=== PATIENT | male | born 1950 ===

== ENCOUNTER 2016-06-11 15:51 | Inpatient (IN) | payer MEDICARE, OTHER ==
[2016-06-11 16:28] VITALS: BMI 28.6
[2016-06-11 17:25] LABS: BASO # 0.1 K/uL (0.0-0.2); BASO % 1.5 % (0.0-2.0); EOS # 0.5 K/uL (0.0-0.7); EOS % 8.4 % (0.0-4.0); HEMATOCRIT 30.4 % (35.0-51.0); LYMPH # 1.2 K/uL (1.0-4.3); LYMPH % 18.7 % (20.0-40.0); MEAN CELL VOLUME 69.3 fL (80.0-94.0); MEAN CORPUSCULAR HEMOGLOBIN 21.4 pg (27.0-31.0); MEAN CORPUSCULAR HGB CONC 30.9 g/dL (33.0-37.0); MEAN PLATELET VOLUME 8.4 fL (7.2-11.7); MONO # 0.7 K/uL (0.0-0.8); MONO % 11.6 % (0.0-10.0); RED CELL DISTRIBUTION WIDTH 28.2 % (11.5-14.5); WHITE BLOOD COUNT 6.2 K/uL (4.8-10.8)
[2016-06-11 17:33] LABS: CHLORIDE 98 mmol/L (98-107); INR 1.1; SODIUM 140 mmol/L (132-148)
[2016-06-11 17:34] LABS: POTASSIUM 3.5 mmol/L (3.6-5.2)
[2016-06-11 17:36] LABS: ALB/GLOB RATIO 1.4 (1.0-2.1); ALKALINE PHOSPHATASE 65 U/L (38-126); AST/SGOT 28 U/L (17-59); BILIRUBIN,TOTAL 0.3 mg/dL (0.2-1.3); BLOOD UREA NITROGEN 14 mg/dL (9-20); CARBON DIOXIDE 28 mmol/L (22-30); GFR AFRICAN-AMERICAN > 60; GLUCOSE,RANDOM 139 mg/dL (75-110); TOTAL PROTEIN 6.6 g/dL (6.3-8.3)
[2016-06-11 17:37] LABS: ALT/SGPT 15 U/L (21-72); CALCIUM 8.2 mg/dl (8.6-10.4)
--- NOTE | 2016-06-11 18:06 | C.PDOC ---
History Of Present Illness 66 year old male presents to the ED after being sent by Dr. Howell for endoscopy prep for a gi bleed. Patient states he had black stool and anemia with a hemoglobin of 5.4 and required a blood transfusion a week and a half ago. He was worked up and had upper and lower endoscopies however the source of bleeding was not found until he had a capsule endoscopy showing blood in the small intestine. His endoscopy will be tomorrow and he notes he has some SOB with exertion, mild lightheadedness, and some bloating. Denies abdominal pain, nausea, vomiting, chest pain, palpitations, or any other complaints at this time. Time Seen by Provider: 06/11/16 16:34 Chief Complaint (Nursing): GI Problem History Per: Patient History/Exam Limitations: no limitations Onset/Duration Of Symptoms: Days Current Symptoms Are (Timing): Still Present Associated Symptoms: Lightheadedness. denies: Vomiting Past Medical History Reviewed: Historical Data, Nursing Documentation, Vital Signs Vital Signs: Last Vital Signs Temp 98.3 F 06/11/16 16:28 Pulse 75 06/11/16 16:28 Resp 18 06/11/16 16:28 BP 141/78 06/11/16 16:28 Pulse Ox 97 06/11/16 18:10 - Medical History PMH: Anemia (with transfusion), Arthritis, Asthma, Back Problems (Lumbar Stenosis), CAD, COPD, Diabetes, Gastrointestinal Ulcer (pyloric ulcer), HTN, Hypercholesterolemia, Osteoporosis, Rheumatoid Arthritis Surgical History: Coronary Stent, Endoscopy - [facility] Procedures CORONAR ARTERIOGR-2 CATH (04/15/06) INJECT ANTICOAGULANT (04/15/06) INSERTION OF ONE VASCULAR STENT (04/15/06) INSPECTION OF UPPER INTESTINAL TRACT, ENDO (02/27/16) INSRT OF DRUG-ELUTING CORON ARTERY STENTS(S) (04/15/06) LEFT HEART CARDIAC CATH (04/15/06) LT HEART ANGIOCARDIOGRAM (04/15/06) MEASURE OF CARDIAC SAMPL & PRESSURE, L HEART, PERC APPROACH (01/15/16) PERC TRANSLUMINAL CORON ANGIOPLASTY PTCA OR CORON ATHERECT (04/15/06) PLAIN RADIOGRAPHY OF LEFT HEART USING OTHER CONTRAST (01/15/16) PLAIN RADIOGRAPHY OF MULT COR ART USING OTH CONTRAST (01/15/16) PROCEDURE ON SINGLE VESSEL (04/15/06) TRANSFUSE NONAUT RED BLOOD CELLS IN PERIPH VEIN, PERC (06/03/16) Family History: States: Unknown Family Hx - Social History Hx Tobacco Use: No Hx Alcohol Use: No Hx Substance Use: No - Immunization History Hx Tetanus Toxoid Vaccination: No Hx Influenza Vaccination: Yes Hx Pneumococcal Vaccination: No Review Of Systems Except As Marked, All Systems Reviewed And Found Negative. Constitutional: Negative for: Fever, Chills Cardiovascular: Positive for: Light Headedness. Negative for: Chest Pain, Palpitations Respiratory: Positive for: SOB with Excertion Gastrointestinal: Positive for: Other (+Bloating). Negative for: Nausea, Vomiting, Abdominal Pain Physical Exam - Physical Exam Appears: Non-toxic, No Acute Distress, Other (+Mild anemic) Skin: Warm, Dry Head: Atraumatic, Normacephalic Eye(s): bilateral: Normal Inspection Oral Mucosa: Moist Chest: Symmetrical, No Deformity Cardiovascular: Rhythm Regular, No Murmur Respiratory: Normal Breath Sounds, No Accessory Muscle Use, No Rales, No Rhonchi , No Wheezing Gastrointestinal/Abdominal: Bowel Sounds (+Normal bowel sounds), Soft, No Tenderness, Distention (+Slight distention), No Guarding, No Rebound Extremity: Normal ROM Neurological/Psych: Oriented x3, Normal Speech, Normal Cognition ED Course And Treatment - Laboratory Results Result Diagrams: 06/11/16 17:18 06/11/16 17:18 Lab Interpretation: Abnormal (Mild anemia Hgb 9.4, Hct 30.4) ECG: Interpreted By Me ECG Rhythm: Sinus Rhythm, 1st Degree HB ECG Interpretation: No Acute Changes O2 Sat by Pulse Oximetry: 97 (room air) Pulse Ox Interpretation: Normal Progress Note: EKG and Blood work ordered and reviewed. Reevaluation Time: 18:52 Reassessment Condition: Unchanged - Physician Consult Information Time Consulting Physician Contacted: 18:52 Physician Contacted: Joaquin Willoughby Outcome Of Conversation: Patient to be admitted for endoscopy tomorrow. Disposition - Disposition Disposition: HOSPITALIZED Disposition Time: 18:52 Condition: STABLE - POA Present On Arrival: None - Clinical Impression Clinical Impression: Gastrointestinal hemorrhage - Scribe Statement The provider has reviewed the documentation as recorded by the Scribe Canelo Mccormick. Provider Attestation: All medical record entries made by the Scribe were at my direction and personally dictated by me. I have reviewed the chart and agree that the record accurately reflects my personal performance of the history, physical exam, medical decision making, and the department course for this patient. I have also personally directed, reviewed, and agree with the discharge instructions and disposition.
--- NOTE | 2016-06-11 20:57 | CP.PCM.CON ---
History of Present Illness - History of Present Illness History of Present Illness: CC: GI Bleed HPI: Patient is a 66 year old man admitted with several month history of obscure GI bleeding, on Aspirin and Plavix for cardiac disease, admitted with blck stool, Hgb 9.4, and capsule endoscopy study today showing fresh blood in the region of the distal duodenum or proximal small bowel. he last tool his antiplatelet medications this morning. he has been seeing black stool the past several days. He was in [facility] last week with Hgb 5, and released with Hgb 9.[address] scan showed some gastric wall thickening of nonspecific nature. The patient last was admitted [facility]if[facility] in February 2016 with GI bleed of obscure origin, I recall the Hgb was around 6 on that admission. EGD to the level of the 3rd portion of the duodenum did not reveal a source of bleeding. Prior to that he initially presented with obscure bleeding in February 2015, at which time he had EGD and Colonoscopy done. He tends to have a pattern of rebleeding whenevr his dual anti-platelet therapy is resumed. He also gets exacerbations of COPD when he gets anemic. Review of Systems - Constitutional Constitutional: absent: Fever, Malaise, Weakness - EENT Eyes: absent: Change in Vision Nose/Mouth/Throat: absent: Nasal Congestion - Cardiovascular Cardiovascular: absent: Chest Pain, Dyspnea, Palpitations - Respiratory Respiratory: absent: Cough, Dyspnea - Gastrointestinal Gastrointestinal: absent: Abdominal Pain, Hematochezia - Genitourinary Genitourinary: absent: Change in Urinary Stream - Musculoskeletal Musculoskeletal: Arthralgias - Integumentary Integumentary: New Lesions - Neurological Neurological: absent: Loss of Vision - Psychiatric Psychiatric: absent: Anxiety, Depression - Hematologic/Lymphatic Hematologic: Easy Bleeding, Easy Bruising Past Patient History - Infectious Disease Hx of Infectious Diseases: None - Past Medical History & Family History Past Medical History?: Yes - Past Social History Smoking Status: Former Smoker Alcohol: None - CARDIAC Hx Hypercholesterolemia: Yes Hx Hypertension: Yes - PULMONARY Hx Asthma: Yes Hx Chronic Obstructive Pulmonary Disease (COPD): Yes - NEUROLOGICAL Hx Neurological Disorder: No Other/Comment: sciatica - HEENT Hx HEENT Problems: No (wears glasses) - RENAL Hx Chronic Kidney Disease: No - ENDOCRINE/METABOLIC Hx Endocrine Disorders: Yes Hx Diabetes Mellitus Type 2: Yes - HEMATOLOGICAL/ONCOLOGICAL Hx Anemia: Yes (with transfusion) - INTEGUMENTARY Hx Dermatological Problems: No - MUSCULOSKELETAL/RHEUMATOLOGICAL Hx Arthritis: Yes Hx Osteoporosis: Yes Hx Rheumatoid Arthritis: Yes - GENITOURINARY/GYNECOLOGICAL Hx Genitourinary Disorders: No - PSYCHIATRIC Hx Substance Use: No - SURGICAL HISTORY Hx Coronary Stent: Yes - ANESTHESIA Hx Anesthesia: Yes Hx Anesthesia Reactions: No Hx Malignant Hyperthermia: No Meds Allergies/Adverse Reactions: Allergies Allergy/AdvReac Type Severity Reaction Status Date / Time No Known Allergies Allergy Verified 06/11/16 16:46 Physical Exam - Constitutional Appears: Well, No Acute Distress - Eye Exam Eye Exam: absent: Conjunctival injection, Scleral icterus - ENT Exam ENT Exam: Normal Exam - Neck Exam Neck exam: Positive for: Normal Inspection - Respiratory Exam Respiratory Exam: Clear to Auscultation Bilateral - Cardiovascular Exam Cardiovascular Exam: REGULAR RHYTHM - GI/Abdominal Exam GI & Abdominal Exam: Soft. absent: Distended, Mass, Tenderness - Extremities Exam Additional comments: Small petechiae on both arms - Back Exam Back exam: NORMAL INSPECTION - Neurological Exam Neurological exam: Alert, Oriented x3 - Psychiatric Exam Psychiatric exam: Normal Affect, Normal Mood - Skin Skin Exam: Petechiae Results - Vital Signs Recent Vital Signs: Last Vital Signs Temp 98.3 F 06/11/16 16:28 Pulse 75 06/11/16 16:28 Resp 18 06/11/16 16:28 BP 141/78 06/11/16 16:28 Pulse Ox 97 06/11/16 18:53 - Labs Result Diagrams: 06/11/16 17:18 06/11/16 17:18 Assessment & Plan (1) Anemia Assessment and Plan: GI Blood losses, on dual anti-platelet drug therapy Hgb stable Status: Acute (2) Gastrointestinal hemorrhage Assessment and Plan: Slow GI blood losses- fresh blood seen in proximal Small Bowel on Capsule endoscopy Rec: Hold anti-platelet agents and plan for upper endoscopy with long scope in AM. Status: Acute (3) COPD (chronic obstructive pulmonary disease) Assessment and Plan: Management per PCP Seems comfortable Status: Acute (4) Coronary artery disease Status: Chronic - Date & Time Date: 06/11/16 Time: 19:30
[2016-06-11] MEDS ORDERED: Albuterol 0.083% Inhal Sol (2.5 mg/3 mL) UD IH PRN (22:25)
[2016-06-12] MEDS: Albuterol-Ipratrop 3 mg / 0.5 (3 ml) UD INH SCH ×7 (06:15→23:25)
[2016-06-12] MEDS ORDERED: Propofol 10 mg/ml Inj (20 ML) ONE ×2 (07:48→08:24)
--- NOTE | 2016-06-12 08:50 | CP.PCM.HP ---
History of Present Illness - History of Present Illness History of Present Illness: 66 y/o male with CAD, COPD, Rheumatoid Arthritis. Patient has GI bleed 2-3 mths ago and admitted in [facility]. Patient had re-bleed and seen in [facility]. Capsule endoscopy was done and noted still has bleeding. Pt was advise to go to ER. Present on Admission - Present on Admission Any Indicators Present on Admission: Yes History of DVT/PE: No History of Uncontrolled Diabetes: No Urinary Catheter: No Decubitus Ulcer Present: No Past Patient History - Infectious Disease Hx of Infectious Diseases: None - Past Medical History & Family History Past Medical History?: Yes - Past Social History Smoking Status: Former Smoker - CARDIAC Hx Hypercholesterolemia: Yes Hx Hypertension: Yes Other/Comment: cad - PULMONARY Hx Asthma: Yes Hx Chronic Obstructive Pulmonary Disease (COPD): Yes - NEUROLOGICAL Hx Neurological Disorder: No Other/Comment: sciatica - HEENT Hx HEENT Problems: No (wears glasses) - RENAL Hx Chronic Kidney Disease: No - ENDOCRINE/METABOLIC Hx Endocrine Disorders: Yes Hx Diabetes Mellitus Type 2: Yes - HEMATOLOGICAL/ONCOLOGICAL Hx Anemia: Yes (with transfusion) - INTEGUMENTARY Hx Dermatological Problems: No - MUSCULOSKELETAL/RHEUMATOLOGICAL Hx Falls: No - GENITOURINARY/GYNECOLOGICAL Hx Genitourinary Disorders: No - PSYCHIATRIC Hx Substance Use: No - SURGICAL HISTORY Hx Coronary Stent: Yes - ANESTHESIA Hx Anesthesia: Yes Hx Anesthesia Reactions: No Hx Malignant Hyperthermia: No Has any member of the family had a problem w/ anesthesia?: No Meds Allergies/Adverse Reactions: Allergies Allergy/AdvReac Type Severity Reaction Status Date / Time No Known Allergies Allergy Verified 06/11/16 16:46 Results - Vital Signs Recent Vital Signs: Last Vital Signs Temp 97.7 F 06/12/16 08:00 Pulse 77 06/12/16 08:01 Resp 12 06/12/16 08:01 BP 159/91 H 06/12/16 08:01 Pulse Ox 100 06/12/16 08:01 - Labs Result Diagrams: 06/11/16 17:18 06/11/16 17:18 Labs: Laboratory Results - last 24 hr 06/12/16 07:28 POC Glucose (mg/dL) 129 H
[2016-06-12] MEDS ORDERED: Home Med 1 UNIT (Linagliptin [Tradjenta] 5 MG) PO SCH (10:00)
[2016-06-12] MEDS: Ranolazine 500 mg Extended Release Tablets PO SCH ×2 (10:12→18:10)
--- NOTE | 2016-06-12 21:29 | CARD ---
APPROVED REPORT EKG Measurement Heart [id number] <Conclusion> Sinus rhythm with 1st degree AV block Otherwise normal ECG
[2016-06-13] MEDS: Albuterol-Ipratrop 3 mg / 0.5 (3 ml) UD INH SCH ×3 (03:15→11:38)
[2016-06-13 07:35] LABS: HEMATOCRIT 32.1 % (35.0-51.0); MEAN CELL VOLUME 69.5 fL (80.0-94.0); MEAN CORPUSCULAR HEMOGLOBIN 21.6 pg (27.0-31.0); MEAN PLATELET VOLUME 8.6 fL (7.2-11.7); RED CELL DISTRIBUTION WIDTH 27.6 % (11.5-14.5); WHITE BLOOD COUNT 8.8 K/uL (4.8-10.8)
--- NOTE | 2016-06-13 08:08 | CP.PCM.PN ---
Subjective - Date & Time of Evaluation Date of Evaluation: 06/13/16 Time of Evaluation: 07:50 - Subjective Subjective: Pt no complain; (+) min weakness but no CP, no SOB, no cough no n/v, no diarrhea, no abd pain; Want to go home Objective - Vital Signs/Intake and Output Vital Signs (last 24 hours): Temp Pulse Resp BP Pulse Ox 97.6 F 78 18 127/74 100 06/12/16 23:21 06/13/16 02:01 06/12/16 23:21 06/12/16 23:21 06/12/16 23:21 - Medications Medications: Current Medications Albuterol Sulfate (Albuterol 0.083% Inhal Celeste (2.5 Mg/3 Ml) Ud) 2.5 mg IH RQ4 PRN PRN Reason: Shortness of Breath Albuterol/Ipratropium (Duoneb 3 Mg/0.5 Mg (3 Ml) Ud) 3 ml INH RQ4 [facility] Last Admin: 06/13/16 07:29 Dose: 3 ml Amlodipine Besylate (Norvasc) 5 mg PO DAILY [facility] Last Admin: 06/12/16 10:12 Dose: 5 mg Losartan Potassium (Cozaar) 100 mg PO DAILY [facility] Last Admin: 06/12/16 10:11 Dose: 100 mg Metoprolol Tartrate (Lopressor) 25 mg PO BID [facility] Last Admin: 06/12/16 18:10 Dose: 25 mg Montelukast Sodium (Singulair) 10 mg PO HS [facility] Pantoprazole Sodium (Protonix Inj) 40 mg IVP DAILY [facility] Last Admin: 06/12/16 10:12 Dose: 40 mg Ranolazine (Ranexa) 500 mg PO BID [facility] Last Admin: 06/12/16 18:10 Dose: 500 mg Rosuvastatin Calcium (Crestor) 40 mg PO HS [facility] Sitagliptin Phosphate (Januvia) 50 mg PO DAILY [facility] Last Admin: 06/12/16 14:46 Dose: 50 mg Tamsulosin HCl (Flomax) 0.4 mg PO DAILY [facility] Last Admin: 06/12/16 10:11 Dose: 0.4 mg - Labs Labs: 06/13/16 07:29 PT 12.0 SECONDS (9.7-12.2) 06/11/16 17:18 INR 1.1 06/11/16 17:18 APTT 34 SECONDS (21-34) 06/11/16 17:18 - Constitutional Appears: No Acute Distress - Eye Exam Eye Exam: Normal appearance - ENT Exam ENT Exam: Mucous Membranes Moist - Neck Exam Neck Exam: Full ROM - Respiratory Exam Respiratory Exam: Clear to Ausculation Bilateral. absent: Rales, Rhonchi, Wheezes - Cardiovascular Exam Cardiovascular Exam: REGULAR RHYTHM, +S1, +S2. absent: Gallop, JVD, Murmur - GI/Abdominal Exam GI & Abdominal Exam: Soft. absent: Tenderness, Mass - Extremities Exam Extremities Exam: Full ROM, Normal Capillary Refill. absent: Calf Tenderness, Pedal Edema Assessment and Plan - Assessment and Plan (Free Text) Assessment: Bleeding AV Mal in small intestion - stable Hct CAD; COPD, rheumatoid Cont meds
[2016-06-13] MEDS: Ranolazine 500 mg Extended Release Tablets PO SCH (10:33)
--- NOTE | 2016-06-13 11:10 | CP.PCM.PN ---
Subjective - Date & Time of Evaluation Date of Evaluation: 06/13/16 Time of Evaluation: 11:07 - Subjective Subjective: CC: Follow up GI bleed Feels well. Denies melena, abdominal pain. Has some sore throat after endoscopy. No dyspnea. Hgb stable. Objective - Vital Signs/Intake and Output Vital Signs (last 24 hours): Temp Pulse Resp BP Pulse Ox 98.1 F 74 18 135/78 97 06/13/16 08:00 06/13/16 08:00 06/13/16 08:00 06/13/16 10:32 06/13/16 08:00 - Medications Medications: Current Medications Albuterol Sulfate (Albuterol 0.083% Inhal Celeste (2.5 Mg/3 Ml) Ud) 2.5 mg IH RQ4 PRN PRN Reason: Shortness of Breath Albuterol/Ipratropium (Duoneb 3 Mg/0.5 Mg (3 Ml) Ud) 3 ml INH RQ4 [facility] Last Admin: 06/13/16 07:29 Dose: 3 ml Amlodipine Besylate (Norvasc) 5 mg PO DAILY [facility] Last Admin: 06/13/16 10:33 Dose: 5 mg Losartan Potassium (Cozaar) 100 mg PO DAILY [facility] Last Admin: 06/13/16 10:32 Dose: 100 mg Metoprolol Tartrate (Lopressor) 25 mg PO BID [facility] Last Admin: 06/13/16 10:32 Dose: 25 mg Montelukast Sodium (Singulair) 10 mg PO HS [facility] Pantoprazole Sodium (Protonix Inj) 40 mg IVP DAILY [facility] Last Admin: 06/13/16 10:33 Dose: 40 mg Ranolazine (Ranexa) 500 mg PO BID [facility] Last Admin: 06/13/16 10:33 Dose: 500 mg Rosuvastatin Calcium (Crestor) 40 mg PO HS [facility] Sitagliptin Phosphate (Januvia) 50 mg PO DAILY [facility] Last Admin: 06/13/16 10:32 Dose: 50 mg Tamsulosin HCl (Flomax) 0.4 mg PO DAILY [facility] Last Admin: 06/13/16 10:32 Dose: 0.4 mg - Labs Labs: 06/13/16 07:29 PT 12.0 SECONDS (9.7-12.2) 06/11/16 17:18 INR 1.1 06/11/16 17:18 APTT 34 SECONDS (21-34) 06/11/16 17:18 - Constitutional Appears: Well, No Acute Distress - Head Exam Head Exam: NORMOCEPHALIC - Eye Exam Eye Exam: Normal appearance. absent: Scleral icterus - ENT Exam ENT Exam: Normal Exam - Respiratory Exam Respiratory Exam: NORMAL BREATHING PATTERN - Cardiovascular Exam Cardiovascular Exam: REGULAR RHYTHM - GI/Abdominal Exam GI & Abdominal Exam: Soft. absent: Tenderness Assessment and Plan (1) Anemia Assessment & Plan: Secondary to chronic slow GI blood losses. Now stable. 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 Arrangements are being made for outpatient EGD with cauterization by Dr Zuñiga next week. Patient instructed to continue Aspirin but stay off Plavix until the procedure is done. Scheduling will be expedited in order to minimize the risk of stent thrombosis off Plavix. Patient was formally introduced to Dr Zuñiga. Discussed with Dr Willoughby- may discharge home. Status: Acute (3) COPD (chronic obstructive pulmonary disease) Status: Acute (4) Coronary artery disease Assessment & Plan: Most recently stented February 2016 Status: Chronic
[2016-06-13 15:48] VITALS: BP 114/75; PULSE 78; RESP 20; TEMP 98.4; O2SAT 94
== END 2016-06-13 16:30 | disposition home or self-care (01) | DRG 379 ==
LOC: C.ER 15:51 → C.9E 18:46 → C.5T 22:42
PROVIDERS: ADMIT Internal Medicine; ATTEND Internal Medicine
PROC: 0W3P8ZZ Control Bleeding in Gastrointestinal Tract, Via Natural or Artificial Opening Endoscopic (ICD-10-PCS; principal; 2016-06-12 07:55)
DX: K31.811 Angiodysplasia of stomach and duodenum with bleeding (principal); J44.9 Chronic obstructive pulmonary disease, unspecified; D64.9 Anemia, unspecified; I10 Essential (primary) hypertension; E11.9 Type 2 diabetes mellitus without complications; I25.10 Atherosclerotic heart disease of native coronary artery without angina pectoris; Q27.33 Arteriovenous malformation of digestive system vessel; J45.909 Unspecified asthma, uncomplicated; E78.00 Pure hypercholesterolemia, unspecified; M06.9 Rheumatoid arthritis, unspecified; M81.0 Age-related osteoporosis without current pathological fracture; Z95.5 Presence of coronary angioplasty implant and graft; Z87.891 Personal history of nicotine dependence; M54.30 Sciatica, unspecified side; K20.8 Other esophagitis

== ENCOUNTER 2017-01-04 04:07 | Inpatient (IN) | payer MEDICARE ==
[2017-01-04 04:07] VITALS: BMI 28.6
[2017-01-04] MEDS ORDERED: Bupivacaine HCl 0.5% PF (30 ml) Inj ONE (04:26)
[2017-01-04] MEDS ORDERED: methylPREDNISolone Depo 80 mg/ml Inj IAA ONE (04:26)
[2017-01-04] MEDS ORDERED: Bupivacaine 0.5% Inj(30mL) IJ ONE (04:27)
--- NOTE | 2017-01-04 04:28 | C.PDOC ---
History Of Present Illness <Sarahy Chandra - Last Filed: 01/04/17 06:19> <Pacheco Hein - Last Filed: 01/04/17 08:00> 66 y/o male patient presents to the ER with chronic pain affecting both his neck and knee, but mainly right knee for upwards of 2 months. He is especially limited by the pain in his right knee which requires him to walk with a cane. 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 Soto. Since that time it is noted that patient has increased swelling in right knee. Patient denies any fevers or recent trauma. (Sarahy Chandra) History Per: Patient History/Exam Limitations: no limitations Onset/Duration Of Symptoms: Days (7) Current Symptoms Are (Timing): Still Present Recent travel outside of the [place]: No - Knee Description Of Injury: Fell (fell around 2 months ago) <Sarahy Chandra - Last Filed: 01/04/17 06:19> <Pacheco Hein - Last Filed: 01/04/17 08:00> Chief Complaint (Nursing): Upper Extremity Problem/Injury Past Medical History Reviewed: Historical Data, Nursing Documentation, Vital Signs - Medical History PMH: Anemia, Arthritis, Asthma, Back Problems (Lumbar Stenosis), CAD, CHF, COPD , Diabetes, Gastrointestinal Ulcer, HTN, Hypercholesterolemia, Hyperlipidemia, Osteoporosis, Chronic Kidney Disease, Rheumatoid Arthritis, Sleep Apnea Surgical History: Coronary Stent (6), Endoscopy, Pacemaker Family History: States: Unknown Family Hx - Social History Hx Tobacco Use: No Hx Alcohol Use: Yes (H/O QUIT) Hx Substance Use: No - Immunization History Hx Tetanus Toxoid Vaccination: No Hx Influenza Vaccination: Yes Hx Pneumococcal Vaccination: No <Sarahy Chandra - Last Filed: 01/04/17 06:19> Vital Signs: Last Vital Signs Temp 98 F 01/04/17 04:16 Pulse 103 H 01/04/17 04:16 Resp 20 01/04/17 04:16 BP 139/77 01/04/17 04:16 Pulse Ox 99 01/04/17 06:21 - [facility] Procedures CONTROL BLEEDING IN GASTROINTESTINAL TRACT, ENDO (06/11/16) CORONAR ARTERIOGR-2 CATH (04/15/06) INJECT ANTICOAGULANT (04/15/06) INSERTION OF ONE VASCULAR STENT (04/15/06) INSPECTION OF UPPER INTESTINAL TRACT, ENDO (06/30/16) INSRT OF DRUG-ELUTING CORON ARTERY STENTS(S) (04/15/06) INTRODUCTION OF OTHER THERAPEUTIC SUBSTANCE INTO UP GI, ENDO (06/30/16) LEFT HEART CARDIAC CATH (04/15/06) LT HEART ANGIOCARDIOGRAM (04/15/06) MEASURE OF CARDIAC SAMPL & PRESSURE, L HEART, PERC APPROACH (01/15/16) PERC TRANSLUMINAL CORON ANGIOPLASTY PTCA OR CORON ATHERECT (04/15/06) PLAIN RADIOGRAPHY OF LEFT HEART USING OTHER CONTRAST (01/15/16) PLAIN RADIOGRAPHY OF MULT COR ART USING OTH CONTRAST (01/15/16) PROCEDURE ON SINGLE VESSEL (04/15/06) TRANSFUSE NONAUT RED BLOOD CELLS IN PERIPH VEIN, PERC (06/30/16) Review Of Systems Review Of Systems: ROS cannot be obtained secondary to pt's inabilty to answer questions. Constitutional: Negative for: Fever, Chills Gastrointestinal: Negative for: Nausea, Vomiting Musculoskeletal: Positive for: Neck Pain (pain radiates to head), Leg Pain <Sarahy Chandra - Last Filed: 01/04/17 06:19> Physical Exam - Physical Exam Appears: Non-toxic, No Acute Distress Skin: Normal Color, Warm, Dry Head: Atraumatic, Normacephalic Oral Mucosa: Moist Chest: Symmetrical Cardiovascular: Rhythm Regular Respiratory: Normal Breath Sounds Gastrointestinal/Abdominal: Soft, No Tenderness Extremity: Swelling (right knee) Extremity: Right: Other (marked swelling in right knee with positive ballottement ) Neurological/Psych: Oriented x3, Normal Speech, Normal Cognition <Sarahy Chandra - Last Filed: 01/04/17 06:19> ED Course And Treatment O2 Sat by Pulse Oximetry: 99 (room air) Pulse Ox Interpretation: Normal <Sarahy Chandra - Last Filed: 01/04/17 06:19> - Laboratory Results Result Diagrams: 01/04/17 06:08 01/04/17 06:29 <Pacheco Hein - Last Filed: 01/04/17 08:00> Procedure: Blank - Time Time Performed: 04:55 - Procedure Procedure:: arthrocentesis - Consent obtained: Consent obtained: Verbal - Performed by: Performed by:: Attending physician - Indications Indications(s):: painful swollen R knee - Contraindications: Contraindications:: None - Anesthetic Technique Anesthetic Technique: Topical - Topical: Local/Regional Anesthetic:: Other - Patient Position Patient Position:: Supine - Location Location: Right, Medial, Knee - Needle Size Needle Size:: 20 - Description Discription of Procedure: 01/04/17 - Result Result: Successful - Post-Procedure Post-procedure:: Dressing applied - Specimens/Tests Ordered Specimens/Tests Ordered: cell count,culture,crystals study - Patient Tolerated Procedure Patient Tolerated Procedure:: Well <Sarahy Chandra - Last Filed: 01/04/17 06:19> Medical Decision Making <Sarahy Chandra - Last Filed: 01/04/17 06:19> <Pacheco Hein - Last Filed: 01/04/17 08:00> Medical Decision Making: Meds- marcaine, DEPO-Medrol (Sarahy Chandra) Signed out to me at change of shift from Dr. Chandra pending Ortho call back for concern for septic arthritis. Spoke with Dr. Willoughby who will take patient onto his service. Consult for Dr. Noel placed. IV antibiotics initiated. Culture sent. (Pacheco Hein) Disposition Comment: Paged Dr. Noel for consult on possible septic arthritis. <Sarahy Chandra - Last Filed: 01/04/17 06:19> Discussed With : Joaquin Willoughby Doctor Will See Patient In The: Hospital - Disposition Disposition Time: 07:30 <Pacheco Hein - Last Filed: 01/04/17 08:00> - Disposition Disposition: HOSPITALIZED Condition: GUARDED - Clinical Impression Clinical Impression: Knee swelling
[2017-01-04 05:07] LABS: FLUID TYPE SYNOVIAL FLUID
[2017-01-04 05:55] LABS: SYNOVIAL FLUID TOTAL COUNT 100 (0-0)
[2017-01-04 06:34] LABS: BASO # 0.1 K/uL (0.0-0.2); BASO % 0.7 % (0.0-2.0); EOS # 0.3 K/uL (0.0-0.7); EOS % 2.1 % (0.0-4.0); HEMATOCRIT 34.2 % (35.0-51.0); LYMPH # 0.9 K/uL (1.0-4.3); LYMPH % 7.6 % (20.0-40.0); MEAN CELL VOLUME 67.9 fL (80.0-94.0); MEAN CORPUSCULAR HEMOGLOBIN 21.4 pg (27.0-31.0); MEAN CORPUSCULAR HGB CONC 31.5 g/dL (33.0-37.0); MEAN PLATELET VOLUME 7.3 fL (7.2-11.7); MONO # 1.2 K/uL (0.0-0.8); MONO % 9.4 % (0.0-10.0); PLATELET COUNT 295 K/uL (130-400); RED CELL DISTRIBUTION WIDTH 20.2 % (11.5-14.5); WHITE BLOOD COUNT 12.4 K/uL (4.8-10.8)
[2017-01-04 06:40] LABS: POTASSIUM 3.6 mmol/L (3.6-5.2)
[2017-01-04 06:42] LABS: BILIRUBIN,TOTAL 0.5 mg/dL (0.2-1.3); TOTAL PROTEIN 7.8 g/dL (6.3-8.3)
[2017-01-04 06:43] LABS: CALCIUM 8.8 mg/dl (8.6-10.4)
[2017-01-04] MEDS ORDERED: Piperacill/Tazo 4.5gm in Dex 4.5 GM/100 ML BAG IVPB STA (07:44)
[2017-01-04 08:18] LABS: EOSINOPHIL 3 % (0-4); NEUTROPHIL 77 % (50-75); TOTAL CELLS COUNTED 100
[2017-01-04 08:20] LABS: GIANT PLATELETS PRESENT; LARGE PLATELETS PRESENT
[2017-01-04 09:33] VITALS: RESP 20
--- NOTE | 2017-01-04 10:06 | RAD ---
PROCEDURE: Right knee dated 01/04/2017. HISTORY: arthritis COMPARISON: Comparison made with prior radiographs 09/10/2015 FINDINGS: BONES: No evidence displaced fracture nor dislocation. The osseous structures appear intact. JOINTS: Mild degenerative osteoarthritis most notably affecting the medial and patellofemoral compartments with medial joint space narrowing and posterior patella osteophyte formation. . . There is a small to medium sized anterior superior patella enthesophyte. . JOINT EFFUSION: Tiny suprapatellar joint effusion. OTHER FINDINGS: Note is made of a metallic staple which felt to be attached to the to clothing (rolled up pants). IMPRESSION: No acute fractures. DJD with small suprapatellar joint effusion.
[2017-01-04] MEDS: Pantoprazole 40 mg EC Tab PO SCH (10:45)
[2017-01-04] MEDS: Ranolazine 500 mg Extended Release Tablets PO SCH ×2 (10:47→17:50)
[2017-01-04] MEDS: Piperacill/Tazo 2.25gm in Dex 2.25 GM/50 ML BAG IVPB SCH ×3 (11:21→22:05)
[2017-01-04 12:14] LABS: ERYTHROCYTE SEDIMENTATION RATE 40 mm/hr (0-15)
--- NOTE | 2017-01-04 12:46 | CP.PCM.HP ---
History of Present Illness - History of Present Illness History of Present Illness: CC: Right knee pain HPI: 66 year old male, h/o CAD, Arhtritis, COPD, Anemia seen in ER c/o severe right knee pain few days. Incited bt injury to the knee. At the ER arhtrocentesis done . No fever. No SOB. No chestpain. Present on Admission - Present on Admission History of DVT/PE: No Urinary Catheter: No Decubitus Ulcer Present: No Review of Systems - Review of Systems All systems: reviewed and no additional remarkable complaints except (c/o knee pains, neck pain, difficultieds walking, no abdominal pain, no melena, no N/V, no fever, no ;oss of weight) Past Patient History - Infectious Disease Hx of Infectious Diseases: None - Past Medical History & Family History Past Medical History?: Yes - Past Social History Smoking Status: Former Smoker - CARDIAC Hx Hypercholesterolemia: Yes Hx Hypertension: Yes Hx Pacemaker: Yes - PULMONARY Hx Asthma: Yes Hx Chronic Obstructive Pulmonary Disease (COPD): Yes Hx Sleep Apnea: Yes - NEUROLOGICAL Hx Paralysis: No - HEENT Hx HEENT Problems: Yes (wears glasses) - RENAL Hx Chronic Kidney Disease: No - ENDOCRINE/METABOLIC Hx Endocrine Disorders: Yes Hx Diabetes Mellitus Type 2: Yes - HEMATOLOGICAL/ONCOLOGICAL Hx Anemia: Yes - INTEGUMENTARY Hx Dermatological Problems: No - MUSCULOSKELETAL/RHEUMATOLOGICAL Hx Arthritis: Yes Hx Back Pain: Yes Hx Falls: Yes Hx Osteoporosis: Yes Hx Rheumatoid Arthritis: Yes - GASTROINTESTINAL Hx Gastrointestinal Disorders: No - GENITOURINARY/GYNECOLOGICAL Hx Genitourinary Disorders: Yes Hx Prostate Problems: Yes (ENLARGED -BPH) - PSYCHIATRIC Hx Substance Use: No - SURGICAL HISTORY Hx Coronary Stent: Yes (6) - ANESTHESIA Hx Anesthesia: Yes Hx Anesthesia Reactions: No Hx Malignant Hyperthermia: No Meds Allergies/Adverse Reactions: Allergies Allergy/AdvReac Type Severity Reaction Status Date / Time No Known Allergies Allergy Verified 08/27/16 12:07 Physical Exam - Constitutional Appears: Chronically Ill - Head Exam Head Exam: NORMAL INSPECTION - Eye Exam Eye Exam: Normal appearance - ENT Exam ENT Exam: Normal Exam - Neck Exam Neck exam: Positive for: Normal Inspection - Respiratory Exam Respiratory Exam: NORMAL BREATHING PATTERN - Cardiovascular Exam Cardiovascular Exam: REGULAR RHYTHM - GI/Abdominal Exam GI & Abdominal Exam: Soft. absent: Tenderness - Rectal Exam Rectal Exam: Deferred - Extremities Exam Extremities exam: Positive for: joint swelling. Negative for: full ROM - Back Exam Back exam: paraspinal tenderness - Neurological Exam Neurological exam: Alert, Oriented x3 - Skin Skin Exam: Normal Color Results - Vital Signs Recent Vital Signs: Last Vital Signs Temp 98 F 01/04/17 09:32 Pulse 89 01/04/17 09:32 Resp 20 01/04/17 09:32 BP 126/69 01/04/17 09:32 Pulse Ox 97 01/04/17 09:32 - Labs Result Diagrams: 01/04/17 06:08 01/04/17 06:29 Labs: Laboratory Results - last 24 hr 01/04/17 01/04/17 01/04/17 05:06 05:06 06:08 WBC 12.4 H RBC 5.04 Hgb 10.8 L Hct 34.2 L MCV 67.9 L MCH 21.4 L MCHC 31.5 L RDW 20.2 H Plt Count 295 MPV 7.3 Neut % (Auto) 80.2 H Lymph % (Auto) 7.6 L Brown % (Auto) 9.4 Eos % (Auto) 2.1 Baso % (Auto) 0.7 Neut # 10.0 H Lymph # 0.9 L Brown # 1.2 H Eos # 0.3 Baso # 0.1 Neutrophils % (Manual) 77 H Band Neutrophils % 3 H Lymphocytes % (Manual) 8 L Monocytes % (Manual) 9 Eosinophils % (Manual) 3 Toxic Granulation Present Platelet Estimate Normal Large Platelets Present Giant Platelets Present Polychromasia Slight Hypochromasia (manual) Slight Poikilocytosis (manual Slight Anisocytosis (manual) Moderate Microcytosis (manual) Slight Ovalocytes Slight Schistocytes Slight ESR 40 H Sodium Potassium Chloride Carbon Dioxide Anion Gap BUN Creatinine Est GFR ( Amer) Est GFR (Non-Af Amer) Random Glucose Calcium Total Bilirubin AST ALT Alkaline Phosphatase C-React Prot High Sens Total Protein Albumin Globulin Albumin/Globulin Ratio Fluid Type Synovial fluid Fluid Crystals Positive H Synovial WBC 22280.0 H Synovial RBC 3955.0 H Synovial Neutrophils 84.0 H Synovial Lymphocytes 2.0 H Synov Monos/Macrophage 14 H Synovial Crystal Type Monosodium urate Synovial Fluid Comment 01/04/17 01/04/17 06:29 06:29 WBC RBC Hgb Hct MCV MCH MCHC RDW Plt Count MPV Neut % (Auto) Lymph % (Auto) Brown % (Auto) Eos % (Auto) Baso % (Auto) Neut # Lymph # Brown # Eos # Baso # Neutrophils % (Manual) Band Neutrophils % Lymphocytes % (Manual) Monocytes % (Manual) Eosinophils % (Manual) Toxic Granulation Platelet Estimate Large Platelets Giant Platelets Polychromasia Hypochromasia (manual) Poikilocytosis (manual Anisocytosis (manual) Microcytosis (manual) Ovalocytes Schistocytes ESR Sodium 136 Potassium 3.6 Chloride 102 Carbon Dioxide 23 Anion Gap 14 BUN 22 H Creatinine 1.6 H Est GFR ( Amer) 52 Est GFR (Non-Af Amer) 43 Random Glucose 156 H Calcium 8.8 Total Bilirubin 0.5 AST 25 ALT 28 Alkaline Phosphatase 126 C-React Prot High Sens > 15.00 H Total Protein 7.8 Albumin 3.9 Globulin 3.9 Albumin/Globulin Ratio 1.0 Fluid Type Fluid Crystals Synovial WBC Synovial RBC Synovial Neutrophils Synovial Lymphocytes Synov Monos/Macrophage Synovial Crystal Type Synovial Fluid Comment Assessment & Plan (1) Knee swelling Status: Acute (2) Anemia Status: Chronic (3) CAD (coronary artery disease) Status: Chronic (4) COPD (chronic obstructive pulmonary disease) Status: Chronic - Assessment and Plan (Free Text) Assessment: A/P knee pain R/o infected knee , CAD, COPD, Anemia P: Continue medications. Orhtopedic evaluation - Date & Time Date: 01/04/17 Time: 12:53
--- NOTE | 2017-01-04 15:48 | CP.PCM.CON ---
History of Present Illness - History of Present Illness History of Present Illness: 66 y/o male patient presents to the ER with chronic pain affecting both his neck and knee, but mainly right knee for upwards of 2 months. He is especially limited by the pain in his right knee which requires him to walk with a cane. Patient has a a roustabout hand and an orthopedist, and approx 1 month ago patient received an unknown joint injection by Dr. Ochoa and was treated for gout with colchicine and steroids w/o much improvement Since that time it is noted that patient has increased swelling in right knee. Patient denies any fevers or recent trauma. States he had bleeding duodenal ulcers 2-3 mos ago requiring EGD and multuiple transfusions Review of Systems - Constitutional Constitutional: As Per HPI. absent: Fever - EENT Eyes: absent: As Per HPI, Blind Spots, Blurred Vision, Change in Vision, Decreased Night Vision, Diplopia, Discharge, Dry Eye, Exophthalmos, Floaters, Irritation, Itchy Eyes, Loss of Peripheral Vision, Pain, Photophobia, Requires Corrective Lenses, Sees Flashes, Spots in Vision, Tunnel Vision, Other Visual Disturbances, Loss of Vision, Other Ears: absent: As Per HPI, Decreased Hearing, Ear Discharge, Ear Pain, Tinnitus, Abnormal Hearing, Disequilibrium, Dizziness, Other Nose/Mouth/Throat: absent: As Per HPI, Epistaxis, Nasal Congestion, Nasal Discharge, Nasal Obstruction, Nasal Trauma, Nose Pain, Post Nasal Drip, Sinus Pain, Sinus Pressure, Bleeding Gums, Change in Voice, Dental Pain, Dry Mouth, Dysphagia, Halitosis, Hoarsness, Lip Swelling, Mouth Lesions, Mouth Pain, Odynophagia, Sore Throat, Throat Swelling, Tongue Swelling, Facial Pain, Neck Pain, Neck Mass, Other - Cardiovascular Cardiovascular: absent: As Per HPI, Acrocyanosis, Chest Pain, Chest Pain at Rest , Chest Pain with Activity, Claudication, Diaphoresis, Dyspnea, Dyspnea on Exertion, Edema, Irregular Heart Rhythm, Pain Radiating to Arm/Neck/Jaw, Leg Edema, Leg Ulcers, Lightheadedness, Orthopnea, Palpitations, Paroxysmal Nocturnal Dyspnea, Pedal Edema, Radiating Pain, Rapid Heart Rate, Slow Heart Rate, Syncope, Other - Gastrointestinal Gastrointestinal: As Per HPI - Genitourinary Genitourinary: absent: As Per HPI, Change in Urinary Stream, Difficulty Urinating, Dysuria, Flank Pain, Hematuria, Pyuria, Nocturia, Urinary Incontinence, Urinary Frequency, Urinary Hesitance, Urinary Urgency, Voiding Freq/Small Amts, Freq UTI, Hx Renal/Bladder Calculi, Hx /Renal Surgery, Bladder Distension, Other - Integumentary Integumentary: absent: As Per HPI, Acne, Alopecia, Bleeding Lesions, Change in Hair, Change in Nails, Change in Pigmentation, Changing Lesions, Dry Skin, Erythema, Furuncle, Hirsutism, Lesions, New Lesions, Non-Healing Lesions, Photosensitivity, Pruritus, Rash, Skin Pain, Skin Ulcer, Sores, Striae, Swelling , Unusual Bruising, Wounds, Jaundice, Other - Neurological Neurological: absent: As Per HPI, Abnormal Gait, Abnormal Hearing, Abnormal Movements, Abnormal Speech, Behavioral Changes, Burning Sensations, Confusion, Convulsions, Disequilibrium, Dizziness, Numbness, Focal Weakness, Frequent Falls , Headaches, Lack of Coordination, Loss of Vision, Memory Loss, Paresthesias, Radicular Pain, Restless Legs, Sensory Deficit, Syncope, Tingling, Tremor, Vertigo, Weakness, Other Visual Disturbances, Other - Psychiatric Psychiatric: absent: As Per HPI, Abnormal Sleep Pattern, Anhedonia, Anxiety, Auditory Hallucinations, Behavioral Changes, Change in Appetite, Change in Libido, Confusion, Depression, Difficulty Concentrating, Hallucinations, Homicidal Ideation, Hopelessness, Irritability, Memory Loss, Mood Swings, Panic Attacks, Paranoia, Suicidal Ideation, Visual Hallucinations, Tactile Hallucinations, Other - Endocrine Endocrine: absent: As Per HPI, Change in Body Appearance, Change in Libido, Cold Intolorance, Deepening of Voice, Excessive Sweating, Fatigue, Flushing, Heat Intolorance, Increase in Ring/Shoe/Hat Size, Palpitations, Polydipsia, Polyphagia, Polyuria, Other - Hematologic/Lymphatic Hematologic: absent: As Per HPI, Easy Bleeding, Easy Bruising, Lymphadenopathy, Other Past Patient History - Infectious Disease Hx of Infectious Diseases: None - Past Medical History & Family History Past Medical History?: Yes - Past Social History Smoking Status: Former Smoker - CARDIAC Hx Hypercholesterolemia: Yes Hx Hypertension: Yes Hx Pacemaker: Yes - PULMONARY Hx Asthma: Yes Hx Chronic Obstructive Pulmonary Disease (COPD): Yes Hx Sleep Apnea: Yes - NEUROLOGICAL Hx Paralysis: No - HEENT Hx HEENT Problems: Yes (wears glasses) - RENAL Hx Chronic Kidney Disease: No - ENDOCRINE/METABOLIC Hx Endocrine Disorders: Yes Hx Diabetes Mellitus Type 2: Yes - HEMATOLOGICAL/ONCOLOGICAL Hx Anemia: Yes - INTEGUMENTARY Hx Dermatological Problems: No - MUSCULOSKELETAL/RHEUMATOLOGICAL Hx Arthritis: Yes Hx Back Pain: Yes Hx Falls: Yes Hx Osteoporosis: Yes Hx Rheumatoid Arthritis: Yes - GASTROINTESTINAL Hx Gastrointestinal Disorders: No - GENITOURINARY/GYNECOLOGICAL Hx Genitourinary Disorders: Yes Hx Prostate Problems: Yes (ENLARGED -BPH) - PSYCHIATRIC Hx Substance Use: No - SURGICAL HISTORY Hx Coronary Stent: Yes (6) - ANESTHESIA Hx Anesthesia: Yes Hx Anesthesia Reactions: No Hx Malignant Hyperthermia: No Meds Allergies/Adverse Reactions: Allergies Allergy/AdvReac Type Severity Reaction Status Date / Time No Known Allergies Allergy Verified 08/27/16 12:07 - Medications Medications: Current Medications Colchicine (Colocrys) 0.6 mg PO DAILY [facility] Last Admin: 01/04/17 10:47 Dose: 0.6 mg Piperacillin Sod/Tazobactam Sod (Zosyn 2.25 Gm Iv Premix) 2.25 gm in 50 mls @ 100 mls/hr IVPB Q6H [facility] Last Admin: 01/04/17 11:21 Dose: 100 mls/hr Isosorbide Mononitrate (Imdur Er) 30 mg PO DAILY [facility] Last Admin: 01/04/17 10:45 Dose: 30 mg Methimazole (Tapazole) 10 mg PO DAILY [facility] Last Admin: 01/04/17 10:47 Dose: 10 mg Pantoprazole Sodium (Protonix Ec Tab) 40 mg PO DAILY [facility] Last Admin: 01/04/17 10:45 Dose: 40 mg Ranolazine (Ranexa) 500 mg PO BID [facility] Last Admin: 01/04/17 10:47 Dose: 500 mg Rosuvastatin Calcium (Crestor) 20 mg PO [facility] Fluticasone/Salmeterol (Advair Diskus 500/50) 1 puff INH RQ12 [facility] Physical Exam - Constitutional Appears: Non-toxic, Chronically Ill - Head Exam Head Exam: ATRAUMATIC, NORMAL INSPECTION, NORMOCEPHALIC - Eye Exam Eye Exam: EOMI, PERRL. absent: Scleral icterus - ENT Exam ENT Exam: Mucous Membranes Dry, Normal External Ear Exam, Normal Oropharynx - Neck Exam Neck exam: Negative for: Lymphadenopathy - Respiratory Exam Respiratory Exam: Decreased Breath Sounds, Rhonchi - Cardiovascular Exam Cardiovascular Exam: REGULAR RHYTHM, +S1, +S2 - GI/Abdominal Exam GI & Abdominal Exam: Diminished Bowel Sounds, Soft. absent: Tenderness - Rectal Exam Rectal Exam: Deferred - Exam Exam: NORMAL INSPECTION - Extremities Exam Extremities exam: Positive for: tenderness. Negative for: calf tenderness, pedal edema, pedal pulses present Additional comments: right knee pain and swelling s/p arthrocentesis - Back Exam Back exam: absent: CVA tenderness (L), CVA tenderness (R) - Neurological Exam Neurological exam: Alert, CN II-XII Intact, Oriented x3, Reflexes Normal - Psychiatric Exam Psychiatric exam: Normal Mood - Skin Skin Exam: Dry, Intact Results - Vital Signs Recent Vital Signs: Last Vital Signs Temp 98 F 01/04/17 09:32 Pulse 89 01/04/17 09:32 Resp 20 01/04/17 09:32 BP 126/69 01/04/17 09:32 Pulse Ox 97 01/04/17 09:32 - Labs Result Diagrams: 01/04/17 06:08 01/04/17 06:29 Labs: Laboratory Results - last 24 hr 01/04/17 01/04/17 01/04/17 05:06 05:06 06:08 WBC 12.4 H RBC 5.04 Hgb 10.8 L Hct 34.2 L MCV 67.9 L MCH 21.4 L MCHC 31.5 L RDW 20.2 H Plt Count 295 MPV 7.3 Neut % (Auto) 80.2 H Lymph % (Auto) 7.6 L Geary % (Auto) 9.4 Eos % (Auto) 2.1 Baso % (Auto) 0.7 Neut # 10.0 H Lymph # 0.9 L Geary # 1.2 H Eos # 0.3 Baso # 0.1 Neutrophils % (Manual) 77 H Band Neutrophils % 3 H Lymphocytes % (Manual) 8 L Monocytes % (Manual) 9 Eosinophils % (Manual) 3 Toxic Granulation Present Platelet Estimate Normal Large Platelets Present Giant Platelets Present Polychromasia Slight Hypochromasia (manual) Slight Poikilocytosis (manual Slight Anisocytosis (manual) Moderate Microcytosis (manual) Slight Ovalocytes Slight Schistocytes Slight ESR 40 H Sodium Potassium Chloride Carbon Dioxide Anion Gap BUN Creatinine Est GFR ( Amer) Est GFR (Non-Af Amer) POC Glucose (mg/dL) Random Glucose Calcium Total Bilirubin AST ALT Alkaline Phosphatase C-React Prot High Sens Total Protein Albumin Globulin Albumin/Globulin Ratio Fluid Type Synovial fluid Fluid Crystals Positive H Synovial WBC 08966.0 H Synovial RBC 3955.0 H Synovial Neutrophils 84.0 H Synovial Lymphocytes 2.0 H Synov Monos/Macrophage 14 H Synovial Crystal Type Monosodium urate Synovial Fluid Comment 01/04/17 01/04/17 01/04/17 06:29 06:29 14:40 WBC RBC Hgb Hct MCV MCH MCHC RDW Plt Count MPV Neut % (Auto) Lymph % (Auto) Geary % (Auto) Eos % (Auto) Baso % (Auto) Neut # Lymph # Geary # Eos # Baso # Neutrophils % (Manual) Band Neutrophils % Lymphocytes % (Manual) Monocytes % (Manual) Eosinophils % (Manual) Toxic Granulation Platelet Estimate Large Platelets Giant Platelets Polychromasia Hypochromasia (manual) Poikilocytosis (manual Anisocytosis (manual) Microcytosis (manual) Ovalocytes Schistocytes ESR Sodium 136 Potassium 3.6 Chloride 102 Carbon Dioxide 23 Anion Gap 14 BUN 22 H Creatinine 1.6 H Est GFR ( Amer) 52 Est GFR (Non-Af Amer) 43 POC Glucose (mg/dL) 209 H Random Glucose 156 H Calcium 8.8 Total Bilirubin 0.5 AST 25 ALT 28 Alkaline Phosphatase 126 C-React Prot High Sens > 15.00 H Total Protein 7.8 Albumin 3.9 Globulin 3.9 Albumin/Globulin Ratio 1.0 Fluid Type Fluid Crystals Synovial WBC Synovial RBC Synovial Neutrophils Synovial Lymphocytes Synov Monos/Macrophage Synovial Crystal Type Synovial Fluid Comment Assessment & Plan (1) Knee swelling Status: Acute (2) CAD (coronary artery disease) Status: Chronic (3) COPD exacerbation Status: Acute (4) Chronic congestive heart failure Status: Acute - Assessment and Plan (Free Text) Assessment: 66 yo male with hx HTN CAD OA and BLeeding duodenal ulcers is admitted with swollen right knee x several mos Did not improve on colchicine admittes to r/o and rx possible septic arthritis Ortho eval pending IV antibiotics ordered will check echo to r/o vegetation
[2017-01-04] MEDS: Fluticasone-Salmeterol 500-50mcg Diskus INH SCH (20:26)
[2017-01-05] MEDS: Piperacill/Tazo 2.25gm in Dex 2.25 GM/50 ML BAG IVPB SCH ×4 (05:09→21:39)
[2017-01-05] MEDS: Fluticasone-Salmeterol 500-50mcg Diskus INH SCH ×2 (08:30→20:01)
--- NOTE | 2017-01-05 09:01 | CP.PCM.PN ---
Subjective - Date & Time of Evaluation Date of Evaluation: 01/05/17 Time of Evaluation: 08:45 - Subjective Subjective: Pt R knee pain is ashley dec in p[ain. Still has neck/ upper back pain No CP, no SOB, no edema, no cough, no diarrhea Objective - Vital Signs/Intake and Output Vital Signs (last 24 hours): Temp Pulse Resp BP Pulse Ox 98.3 F 76 20 111/70 98 01/05/17 08:09 01/05/17 08:09 01/05/17 08:09 01/05/17 08:09 01/05/17 08:09 - Medications Medications: Current Medications Colchicine (Colocrys) 0.6 mg PO DAILY [facility] Last Admin: 01/04/17 10:47 Dose: 0.6 mg Heparin Sodium (Porcine) (Heparin) 5,000 units SC Q12 [facility] Last Admin: 01/04/17 22:05 Dose: 5,000 units Piperacillin Sod/Tazobactam Sod (Zosyn 2.25 Gm Iv Premix) 2.25 gm in 50 mls @ 100 mls/hr IVPB Q6H [facility] Last Admin: 01/05/17 05:09 Dose: 100 mls/hr Isosorbide Mononitrate (Imdur Er) 30 mg PO DAILY [facility] Last Admin: 01/04/17 10:45 Dose: 30 mg Methimazole (Tapazole) 10 mg PO DAILY [facility] Last Admin: 01/04/17 10:47 Dose: 10 mg Pantoprazole Sodium (Protonix Ec Tab) 40 mg PO DAILY [facility] Last Admin: 01/04/17 10:45 Dose: 40 mg Ranolazine (Ranexa) 500 mg PO BID [facility] Last Admin: 01/04/17 17:50 Dose: 500 mg Rosuvastatin Calcium (Crestor) 20 mg PO HS [facility] Last Admin: 01/04/17 21:24 Dose: 20 mg Fluticasone/Salmeterol (Advair Diskus 500/50) 1 puff INH RQ12 [facility] Last Admin: 01/05/17 08:30 Dose: 1 puff - Labs Labs: 01/04/17 06:08 01/04/17 06:29 - Constitutional Appears: No Acute Distress - Eye Exam Eye Exam: Normal appearance - ENT Exam ENT Exam: Mucous Membranes Moist - Neck Exam Neck Exam: Full ROM. absent: Lymphadenopathy, Thyromegaly - Respiratory Exam Respiratory Exam: Clear to Ausculation Bilateral. absent: Decreased Breath Sounds, Rales, Rhonchi, Wheezes - Cardiovascular Exam Cardiovascular Exam: REGULAR RHYTHM, +S1, +S2, Murmur. absent: Gallop, JVD - GI/Abdominal Exam GI & Abdominal Exam: Soft. absent: Tenderness - Extremities Exam Extremities Exam: Full ROM, Joint Swelling (R knee w/ minimal swelling compae to L, good AROM). absent: Calf Tenderness Assessment and Plan - Assessment and Plan (Free Text) Assessment: R knee Effusion r/o septic arthritis Rheumatoid Arthritis; Gout NIDDM, Asthma, CAD; recent PUD w/ bleeding Await C/S Recall rheuma Cont mewds
[2017-01-05] MEDS: Pantoprazole 40 mg EC Tab PO SCH (09:45)
[2017-01-05] MEDS: Ranolazine 500 mg Extended Release Tablets PO SCH ×2 (09:46→19:00)
--- NOTE | 2017-01-05 11:38 | CP.PCM.PN ---
Subjective - Date & Time of Evaluation Date of Evaluation: 01/05/17 Time of Evaluation: 09:00 - Subjective Subjective: cultures so far neg c/o pain able to flex about 40 degrees Objective - Vital Signs/Intake and Output Vital Signs (last 24 hours): Temp Pulse Resp BP Pulse Ox 98.3 F 76 20 111/70 98 01/05/17 08:09 01/05/17 08:09 01/05/17 08:09 01/05/17 08:09 01/05/17 08:09 - Medications Medications: Current Medications Colchicine (Colocrys) 0.6 mg PO DAILY [facility] Last Admin: 01/05/17 09:45 Dose: Not Given Heparin Sodium (Porcine) (Heparin) 5,000 units SC Q12 [facility] Last Admin: 01/05/17 09:45 Dose: Not Given Piperacillin Sod/Tazobactam Sod (Zosyn 2.25 Gm Iv Premix) 2.25 gm in 50 mls @ 100 mls/hr IVPB Q6H [facility] Last Admin: 01/05/17 09:44 Dose: 100 mls/hr Isosorbide Mononitrate (Imdur Er) 30 mg PO DAILY [facility] Last Admin: 01/05/17 09:45 Dose: Not Given Methimazole (Tapazole) 10 mg PO DAILY [facility] Last Admin: 01/05/17 09:46 Dose: Not Given Pantoprazole Sodium (Protonix Ec Tab) 40 mg PO DAILY [facility] Last Admin: 01/05/17 09:45 Dose: Not Given Ranolazine (Ranexa) 500 mg PO BID [facility] Last Admin: 01/05/17 09:46 Dose: Not Given Rosuvastatin Calcium (Crestor) 20 mg PO HS [facility] Last Admin: 01/04/17 21:24 Dose: 20 mg Fluticasone/Salmeterol (Advair Diskus 500/50) 1 puff INH RQ12 [facility] Last Admin: 01/05/17 08:30 Dose: 1 puff - Labs Labs: 01/04/17 06:08 01/04/17 06:29 - Constitutional Appears: Chronically Ill - Head Exam Head Exam: ATRAUMATIC - Eye Exam Eye Exam: PERRL - ENT Exam ENT Exam: Mucous Membranes Dry - Neck Exam Neck Exam: absent: Lymphadenopathy - Respiratory Exam Respiratory Exam: Decreased Breath Sounds - Cardiovascular Exam Cardiovascular Exam: REGULAR RHYTHM, +S1, +S2 - GI/Abdominal Exam GI & Abdominal Exam: Distended, Soft - Rectal Exam Rectal Exam: Deferred Assessment and Plan (1) Knee swelling Status: Acute (2) CAD (coronary artery disease) Status: Chronic (3) COPD exacerbation Status: Acute (4) Chronic congestive heart failure Status: Acute - Assessment and Plan (Free Text) Assessment: probable gouty arthritis will need MRI as out pt ortho follow up
--- NOTE | 2017-01-05 12:37 | CP.PCM.CON ---
History of Present Illness - History of Present Illness History of Present Illness: Orthopedic consult for Dr. Noel 66M complains of severe right knee pain x 1 week. He says he has had chronic pain in his knees and his neck for years, but mild. He had a fall approx 2 months ago when he was in [facility] and after that time he had increased pain and swelling in his right knee. He had xrays after the fall and they were negative for fracture. He says his knee pain was mild and stable after that time until approx 8 days ago when he had severe pain and swelling to right knee , making walking difficult, so he decided to come to ER. He has history of gout in his great toes, but never in his knee. He has taken colchicine and ketorolac in the past.He takes humira since 2011. Sees Dr[address] Ochoa for RA. Also complains of neck pain, mild. Uses cane for ambulation. Denies fever, chills, headache, CP/SOB/dizziness. No pain in other joints or extremities PMH: RA, HTN, CAD s/p stent x 6, PPM, DM, BPH, COPD Review of Systems - Review of Systems All systems: reviewed and no additional remarkable complaints except - Constitutional Additional comments: no fever/chills - Cardiovascular Cardiovascular: As Per HPI - Respiratory Respiratory: As Per HPI - Musculoskeletal Musculoskeletal: As Per HPI - Integumentary Additional comments: no skin changes or cuts/abrasions - Neurological Neurological: As Per HPI - Hematologic/Lymphatic Hematologic: absent: As Per HPI, Easy Bleeding, Easy Bruising, Lymphadenopathy, Other Past Patient History - Infectious Disease Hx of Infectious Diseases: None - Past Medical History & Family History Past Medical History?: Yes Past Family History: Reviewed and not pertinent - Past Social History Smoking Status: Former Smoker - CARDIAC Hx Cardiac Disorders: Yes Hx Hypercholesterolemia: Yes Hx Hypertension: Yes Hx Pacemaker: Yes - PULMONARY Hx Asthma: Yes Hx Chronic Obstructive Pulmonary Disease (COPD): Yes Hx Sleep Apnea: Yes - NEUROLOGICAL Hx Paralysis: No - HEENT Hx HEENT Problems: Yes (wears glasses) - RENAL Hx Chronic Kidney Disease: No - ENDOCRINE/METABOLIC Hx Endocrine Disorders: Yes Hx Diabetes Mellitus Type 2: Yes - HEMATOLOGICAL/ONCOLOGICAL Hx Anemia: Yes - INTEGUMENTARY Hx Dermatological Problems: No - MUSCULOSKELETAL/RHEUMATOLOGICAL Hx Arthritis: Yes Hx Back Pain: Yes Hx Falls: Yes Hx Osteoporosis: Yes Hx Rheumatoid Arthritis: Yes - GASTROINTESTINAL Hx Gastrointestinal Disorders: No - GENITOURINARY/GYNECOLOGICAL Hx Genitourinary Disorders: Yes Hx Prostate Problems: Yes (ENLARGED -BPH) - PSYCHIATRIC Hx Substance Use: No - SURGICAL HISTORY Hx Coronary Stent: Yes (6) - ANESTHESIA Hx Anesthesia: Yes Hx Anesthesia Reactions: No Hx Malignant Hyperthermia: No Meds Allergies/Adverse Reactions: Allergies Allergy/AdvReac Type Severity Reaction Status Date / Time No Known Allergies Allergy Verified 08/27/16 12:07 - Medications Medications: Current Medications Colchicine (Colocrys) 0.6 mg PO DAILY [facility] Last Admin: 01/05/17 09:45 Dose: Not Given Heparin Sodium (Porcine) (Heparin) 5,000 units SC Q12 [facility] Last Admin: 01/05/17 09:45 Dose: Not Given Piperacillin Sod/Tazobactam Sod (Zosyn 2.25 Gm Iv Premix) 2.25 gm in 50 mls @ 100 mls/hr IVPB Q6H [facility] Last Admin: 01/05/17 09:44 Dose: 100 mls/hr Isosorbide Mononitrate (Imdur Er) 30 mg PO DAILY [facility] Last Admin: 01/05/17 09:45 Dose: Not Given Methimazole (Tapazole) 10 mg PO DAILY [facility] Last Admin: 01/05/17 09:46 Dose: Not Given Pantoprazole Sodium (Protonix Ec Tab) 40 mg PO DAILY [facility] Last Admin: 01/05/17 09:45 Dose: Not Given Ranolazine (Ranexa) 500 mg PO BID [facility] Last Admin: 01/05/17 09:46 Dose: Not Given Rosuvastatin Calcium (Crestor) 20 mg PO HS [facility] Last Admin: 01/04/17 21:24 Dose: 20 mg Fluticasone/Salmeterol (Advair Diskus 500/50) 1 puff INH RQ12 [facility] Last Admin: 01/05/17 08:30 Dose: 1 puff Physical Exam - Constitutional Appears: Well, No Acute Distress - Neck Exam Neck exam: Positive for: Normal Inspection Additional comments: mild upper trap and paraspinal tenderness, ROM WNL with minimal pain - Respiratory Exam Respiratory Exam: NORMAL BREATHING PATTERN - Expanded Upper Extremities Exam Left Neuro motor exam: finger 2-5 abduction intact, thumb abduction, thumb IP flexion intact, thumb opposition intact, wrist extension intact (bilaterally) Neurosensory exam: median nerve intact, radial nerve intact, ulnar nerve intact (bilaterally) Vascular exam: radial pulse - Expanded Lower Extremities Exam Right Knee exam: effusion (small effusion, not warm), full ROM (full pain free ROM, sits with knees flexed to 45 degrees without pain) Ankle exam: FULL ROM Neuro vacular tendon exam: no vascular compromise (calves soft NT neg homans, + DP/PT pulses, skin intact, noted aspiration site, dry, mild lax to ladan, + endpoint, neg varus valgus stress, neg Mcmurrays) - Neurological Exam Neurological exam: Alert, Oriented x3 - Psychiatric Exam Psychiatric exam: Normal Affect, Normal Mood - Skin Skin Exam: Dry, Intact, Normal Color, Warm Additional comments: no erythema to knee right Results - Vital Signs Recent Vital Signs: Last Vital Signs Temp 98.3 F 01/05/17 08:09 Pulse 76 01/05/17 08:09 Resp 20 01/05/17 08:09 BP 111/70 01/05/17 08:09 Pulse Ox 98 01/05/17 08:09 - Labs Result Diagrams: 01/04/17 06:08 01/04/17 06:29 Labs: Laboratory Results - last 24 hr 01/04/17 01/04/17 01/04/17 05:06 14:40 16:31 POC Glucose (mg/dL) 209 H 170 H Fluid Diff Path Review Stool Occult Blood 01/04/17 01/05/17 01/05/17 21:05 07:34 10:22 POC Glucose (mg/dL) 163 H 184 H Fluid Diff Path Review Stool Occult Blood Negative 01/05/17 11:18 POC Glucose (mg/dL) 243 H Fluid Diff Path Review Stool Occult Blood - Impressions Impression: Patient Name / ID : JEFFREY Hopkins / [id number] Exam Date : 01/04/2017 06:12:04 ( Approved ) Study Comment : Sex / Age : M / 66Y Creator : Fausto Hamilton MD Dictator : Cardiopulmonary Technologist : Cadd Operator : Fausto Hamilton MD Approver2 : Report Date : 01/04/2017 10:04:22 My Comment : PROCEDURE: Right knee dated 01/04/2017. HISTORY: arthritis COMPARISON: Comparison made with prior radiographs 09/10/2015 FINDINGS: BONES: No evidence displaced fracture nor dislocation. The osseous structures appear intact. JOINTS: Mild degenerative osteoarthritis most notably affecting the medial and patellofemoral compartments with medial joint space narrowing and posterior patella osteophyte formation. . . There is a small to medium sized anterior superior patella enthesophyte. . JOINT EFFUSION: Tiny suprapatellar joint effusion. OTHER FINDINGS: Note is made of a metallic staple which felt to be attached to the to clothing ( rolled up pants). IMPRESSION: No acute fractures. DJD with small suprapatellar joint effusion. Assessment & Plan (1) Acute gout of right knee Assessment and Plan: right knee synovial fluid analysis noted +monosodium urate crystals 87k WBC but only 84% polys Cx neg x 24h Clinically patient significantly improved and very low clinical suspicion of septic arthritis however WBC in fluid high and patient on humira so monitor closely for pain and swelling and f/u synovial fluid cultures VTE proph PT/OT d/w Dr. Noel agrees with above Status: Acute (2) Degenerative arthritis of right knee Assessment and Plan: xrays show moderate medial compartment DJD, mild to mod lateral and PF compartments Status: Chronic (3) Arthritis, rheumatoid Status: Chronic
[2017-01-05 17:28] LABS: IRON 18 ug/dL (49-181)
[2017-01-05] MEDS: (Novolog) Insulin Aspart, Recombinant 100 u/ml 10 ml vial SC SCH (21:37)
[2017-01-06] MEDS: Piperacill/Tazo 2.25gm in Dex 2.25 GM/50 ML BAG IVPB SCH ×2 (04:30→09:53)
[2017-01-06 07:23] VITALS: BP 145/85; PULSE 84; TEMP 97.6; O2SAT 96
[2017-01-06] MEDS: Fluticasone-Salmeterol 500-50mcg Diskus INH SCH (08:32)
--- NOTE | 2017-01-06 08:34 | CP.PCM.PN ---
Subjective - Date & Time of Evaluation Date of Evaluation: 01/06/17 Time of Evaluation: 08:10 - Subjective Subjective: Pt no complain; ashley dec on R kne pain Still w/ swelling but not inflammed - no redness, no warmth No CP, no SOB, no cough, no diarhea Objective - Vital Signs/Intake and Output Vital Signs (last 24 hours): Temp Pulse Resp BP Pulse Ox 97.6 F 84 20 145/85 96 01/06/17 07:21 01/06/17 07:21 01/06/17 07:21 01/06/17 07:21 01/06/17 07:21 Intake and Output: 01/06/17 01/06/17 06:59 18:59 Intake Total 230 Balance 230 - Medications Medications: Current Medications Colchicine (Colocrys) 0.6 mg PO DAILY [facility] Last Admin: 01/05/17 09:45 Dose: Not Given Heparin Sodium (Porcine) (Heparin) 5,000 units SC Q12 [facility] Last Admin: 01/05/17 21:37 Dose: 5,000 units Piperacillin Sod/Tazobactam Sod (Zosyn 2.25 Gm Iv Premix) 2.25 gm in 50 mls @ 100 mls/hr IVPB Q6H [facility] Last Admin: 01/06/17 04:30 Dose: 100 mls/hr Insulin Aspart (Novolog) 0 unit SC ACHS [facility] PRN Reason: Protocol Last Admin: 01/05/17 21:37 Dose: Not Given Isosorbide Mononitrate (Imdur Er) 30 mg PO DAILY [facility] Last Admin: 01/05/17 09:45 Dose: Not Given Methimazole (Tapazole) 10 mg PO DAILY [facility] Last Admin: 01/05/17 09:46 Dose: Not Given Pantoprazole Sodium (Protonix Ec Tab) 40 mg PO DAILY [facility] Last Admin: 01/05/17 09:45 Dose: Not Given Ranolazine (Ranexa) 500 mg PO BID [facility] Last Admin: 01/05/17 19:00 Dose: 500 mg Rosuvastatin Calcium (Crestor) 20 mg PO HS [facility] Last Admin: 01/05/17 21:37 Dose: 20 mg Fluticasone/Salmeterol (Advair Diskus 500/50) 1 puff INH RQ12 [facility] Last Admin: 01/05/17 20:01 Dose: 1 puff - Labs Labs: 01/04/17 06:08 01/04/17 06:29 - Constitutional Appears: No Acute Distress - Eye Exam Eye Exam: Normal appearance - ENT Exam ENT Exam: Mucous Membranes Moist - Neck Exam Neck Exam: Full ROM. absent: Lymphadenopathy, Thyromegaly - Respiratory Exam Respiratory Exam: Clear to Ausculation Bilateral. absent: Rales, Rhonchi, Wheezes - Cardiovascular Exam Cardiovascular Exam: REGULAR RHYTHM, +S1, +S2. absent: Gallop, JVD, Murmur - GI/Abdominal Exam GI & Abdominal Exam: Soft. absent: Tenderness, Mass - Extremities Exam Extremities Exam: Full ROM, Joint Swelling, Normal Capillary Refill, Tenderness (knee w/ min effusion, good AROM. Ambulate w/ min limp). absent: Calf Tenderness, Pedal Edema (R knee w/ minimal effusion, good AROM, no warmth) Assessment and Plan - Assessment and Plan (Free Text) Assessment: Ac R knee swelling r/o Septic arthritis HTN, CAD, Asthma, Gout, For discharge if clear w/ ID & Ortho Cont OPD meds
[2017-01-06] MEDS: Pantoprazole 40 mg EC Tab PO SCH (09:51)
[2017-01-06] MEDS: (Novolog) Insulin Aspart, Recombinant 100 u/ml 10 ml vial SC SCH (09:52)
[2017-01-06] MEDS: Ranolazine 500 mg Extended Release Tablets PO SCH (09:53)
--- NOTE | 2017-01-06 10:49 | CP.PCM.PN ---
Subjective - Date & Time of Evaluation Date of Evaluation: 01/06/17 Time of Evaluation: 11:45 - Subjective Subjective: Patient states knee pain is much improved. No new complaints Review of Systems - Review of Systems All systems: reviewed and no additional remarkable complaints except - Cardiovascular Cardiovascular: UNREMARKABLE - Respiratory Respiratory: UNREMARKABLE - Gastrointestinal Gastrointestinal: UNREMARKABLE - Genitourinary Genitourinary: UNREMARKABLE - Musculoskeletal Musculoskeletal: UNREMARKABLE - Integumentary Integumentary: UNREMARKABLE - Neurological Neurological: UNREMARKABLE - Hematologic/Lymphatic Hematologic: UNREMARKABLE Objective - Vital Signs/Intake and Output Vital Signs (last 24 hours): Temp Pulse Resp BP Pulse Ox 97.6 F 84 20 145/85 96 01/06/17 07:21 01/06/17 07:21 01/06/17 07:21 01/06/17 07:21 01/06/17 07:21 Intake and Output: 01/06/17 01/06/17 06:59 18:59 Intake Total 230 Balance 230 - Medications Medications: Current Medications Colchicine (Colocrys) 0.6 mg PO DAILY [facility] Last Admin: 01/05/17 09:45 Dose: Not Given Heparin Sodium (Porcine) (Heparin) 5,000 units SC Q12 [facility] Last Admin: 01/06/17 09:54 Dose: 5,000 units Piperacillin Sod/Tazobactam Sod (Zosyn 2.25 Gm Iv Premix) 2.25 gm in 50 mls @ 100 mls/hr IVPB Q6H [facility] Last Admin: 01/06/17 09:53 Dose: 100 mls/hr Insulin Aspart (Novolog) 0 unit SC ACHS [facility] PRN Reason: Protocol Last Admin: 01/06/17 09:52 Dose: Not Given Isosorbide Mononitrate (Imdur Er) 30 mg PO DAILY [facility] Last Admin: 01/06/17 09:52 Dose: 30 mg Methimazole (Tapazole) 10 mg PO DAILY [facility] Last Admin: 01/06/17 09:53 Dose: 10 mg Pantoprazole Sodium (Protonix Ec Tab) 40 mg PO DAILY [facility] Last Admin: 01/06/17 09:51 Dose: 40 mg Ranolazine (Ranexa) 500 mg PO BID [facility] Last Admin: 01/06/17 09:53 Dose: 500 mg Rosuvastatin Calcium (Crestor) 20 mg PO HS [facility] Last Admin: 01/05/17 21:37 Dose: 20 mg Fluticasone/Salmeterol (Advair Diskus 500/50) 1 puff INH RQ12 [facility] Last Admin: 01/06/17 08:32 Dose: 1 puff - Labs Labs: 01/04/17 06:08 01/04/17 06:29 - Constitutional Appears: Well, No Acute Distress - Head Exam Head Exam: ATRAUMATIC - Respiratory Exam Respiratory Exam: NORMAL BREATHING PATTERN - Extremities Exam Additional comments: sensation intact calves sosft NT neg homans knee swelling improving no erythema - Neurological Exam Neurological Exam: Alert, Awake, Oriented x3 Neuro motor strength exam: Right Lower Extremity: 5 (full AROM ankle/toes/knee wihtout pain) - Psychiatric Exam Psychiatric exam: Normal Affect, Normal Mood - Skin Skin Exam: Dry, Intact, Normal Color, Warm Assessment and Plan (1) Acute gout of right knee Assessment & Plan: improving f/u knee synovial fluid cx, prelim neg 48h PT OOB VTE proph d/w Dr. Noel, agrees with above cont gout tx f/u Dr. Noel as outpt prn Status: Acute (2) Degenerative arthritis of right knee Status: Chronic (3) Arthritis, rheumatoid Status: Chronic
--- NOTE | 2017-01-06 11:46 | CP.PCM.PN ---
Subjective - Date & Time of Evaluation Date of Evaluation: 01/06/17 Time of Evaluation: 08:00 - Subjective Subjective: cultures negative will switch to po rx follow uop with dr woody in am Objective - Vital Signs/Intake and Output Vital Signs (last 24 hours): Temp Pulse Resp BP Pulse Ox 97.6 F 84 20 145/85 96 01/06/17 07:21 01/06/17 07:21 01/06/17 07:21 01/06/17 07:21 01/06/17 07:21 Intake and Output: 01/06/17 01/06/17 06:59 18:59 Intake Total 230 Balance 230 - Medications Medications: Current Medications Colchicine (Colocrys) 0.6 mg PO DAILY [facility] Last Admin: 01/06/17 10:54 Dose: 0.6 mg Heparin Sodium (Porcine) (Heparin) 5,000 units SC Q12 [facility] Last Admin: 01/06/17 09:54 Dose: 5,000 units Piperacillin Sod/Tazobactam Sod (Zosyn 2.25 Gm Iv Premix) 2.25 gm in 50 mls @ 100 mls/hr IVPB Q6H [facility] Last Admin: 01/06/17 09:53 Dose: 100 mls/hr Insulin Aspart (Novolog) 0 unit SC ACHS [facility] PRN Reason: Protocol Last Admin: 01/06/17 09:52 Dose: Not Given Isosorbide Mononitrate (Imdur Er) 30 mg PO DAILY [facility] Last Admin: 01/06/17 09:52 Dose: 30 mg Methimazole (Tapazole) 10 mg PO DAILY [facility] Last Admin: 01/06/17 09:53 Dose: 10 mg Pantoprazole Sodium (Protonix Ec Tab) 40 mg PO DAILY [facility] Last Admin: 01/06/17 09:51 Dose: 40 mg Ranolazine (Ranexa) 500 mg PO BID [facility] Last Admin: 01/06/17 09:53 Dose: 500 mg Rosuvastatin Calcium (Crestor) 20 mg PO HS [facility] Last Admin: 01/05/17 21:37 Dose: 20 mg Fluticasone/Salmeterol (Advair Diskus 500/50) 1 puff INH RQ12 [facility] Last Admin: 01/06/17 08:32 Dose: 1 puff - Labs Labs: 01/04/17 06:08 01/04/17 06:29 - Constitutional Appears: Non-toxic, Chronically Ill - Head Exam Head Exam: NORMOCEPHALIC - Eye Exam Eye Exam: PERRL - ENT Exam ENT Exam: Mucous Membranes Dry - Neck Exam Neck Exam: absent: Lymphadenopathy - Respiratory Exam Respiratory Exam: Decreased Breath Sounds - Cardiovascular Exam Cardiovascular Exam: REGULAR RHYTHM - GI/Abdominal Exam GI & Abdominal Exam: Distended, Soft - Rectal Exam Rectal Exam: Deferred - Exam Exam: NORMAL INSPECTION - Extremities Exam Extremities Exam: absent: Pedal Edema - Back Exam Back Exam: absent: CVA tenderness (L), CVA tenderness (R) - Neurological Exam Neurological Exam: Alert, Awake, Oriented x3 Assessment and Plan (1) Knee swelling Status: Acute (2) CAD (coronary artery disease) Status: Chronic (3) COPD exacerbation Status: Acute (4) Chronic congestive heart failure Status: Acute
[2017-01-07 17:59] LABS: LYME IGG NEGATIVE (NEGATIVE)
[2017-01-07 18:07] LABS: LYME IGM NEGATIVE (NEGATIVE)
== END 2017-01-06 12:12 | disposition home or self-care (01) | DRG 553 ==
LOC: C.ER 04:07 → C.9E 07:43 → C.3T 08:36
PROVIDERS: ADMIT Internal Medicine; ATTEND Internal Medicine
PROC: 0S9C3ZX Drainage of Right Knee Joint, Percutaneous Approach, Diagnostic (ICD-10-PCS; principal; 2017-01-04)
DX: M17.11 Unilateral primary osteoarthritis, right knee (principal); M10.9 Gout, unspecified; M06.9 Rheumatoid arthritis, unspecified; K26.4 Chronic or unspecified duodenal ulcer with hemorrhage; E11.22 Type 2 diabetes mellitus with diabetic chronic kidney disease; I13.0 Hypertensive heart and chronic kidney disease with heart failure and stage 1 through stage 4 chronic kidney disease, or unspecified chronic kidney disease; I50.9 Heart failure, unspecified; J44.1 Chronic obstructive pulmonary disease with (acute) exacerbation; G47.30 Sleep apnea, unspecified; E78.5 Hyperlipidemia, unspecified; G89.29 Other chronic pain; E78.00 Pure hypercholesterolemia, unspecified; D64.9 Anemia, unspecified; I25.10 Atherosclerotic heart disease of native coronary artery without angina pectoris; M81.0 Age-related osteoporosis without current pathological fracture; N18.9 Chronic kidney disease, unspecified; N40.0 Benign prostatic hyperplasia without lower urinary tract symptoms; Z79.84 Long term (current) use of oral hypoglycemic drugs; Z87.11 Personal history of peptic ulcer disease; Z87.891 Personal history of nicotine dependence; Z95.0 Presence of cardiac pacemaker; Z95.5 Presence of coronary angioplasty implant and graft

== ENCOUNTER 2017-04-16 07:30 | Observation (INO) | payer MEDICARE ==
[2017-04-16 07:41] VITALS: BMI 29.2
[2017-04-16] MEDS ORDERED: Sodium Chloride 0.9% 1,000 ML ONE (08:23)
--- NOTE | 2017-04-16 08:25 | C.PDOC ---
History Of Present Illness 67 y/o male with history of multiple stents last one in 2016 presents to ED for evaluation of near syncope prior to arrival associated with abdominal pain and reports currently having myalgia. Patient states he woke up and while "walking to bathroom felt like he was going to pass out". Patient reports he has the flu and has been taking Tamaflu for 8 days, last fever was 2 days ago. Patient denies angina like symptoms since last stent, trauma, fall, nausea, vomiting or any other complaints at this time. Time Seen by Provider: 04/16/17 07:53 Chief Complaint (Nursing): Abdominal Pain History Per: Patient History/Exam Limitations: no limitations Onset/Duration Of Symptoms: Hrs Current Symptoms Are (Timing): Still Present Location Of Pain/Discomfort: RUQ, LUQ Past Medical History Reviewed: Historical Data, Nursing Documentation, Vital Signs Vital Signs: Last Vital Signs Temp 98.6 F 04/16/17 07:41 Pulse 66 04/16/17 09:45 Resp 18 04/16/17 09:45 BP 122/71 04/16/17 09:45 Pulse Ox 99 04/16/17 10:07 - Medical History PMH: Anemia, Arthritis, Asthma, Back Problems (Lumbar Stenosis), CAD, CHF, COPD , Diabetes, Gastrointestinal Ulcer, HTN, Hypercholesterolemia, Hyperlipidemia, Osteoporosis, Rheumatoid Arthritis, Sleep Apnea Surgical History: Coronary Stent (6), Endoscopy, Pacemaker - [facility] Procedures CONTROL BLEEDING IN GASTROINTESTINAL TRACT, ENDO (06/11/16) CORONAR ARTERIOGR-2 CATH (04/15/06) DRAINAGE OF RIGHT KNEE JOINT, PERCUTANEOUS APPROACH, DIAGN (01/04/17) INJECT ANTICOAGULANT (04/15/06) INSERTION OF ONE VASCULAR STENT (04/15/06) INSPECTION OF UPPER INTESTINAL TRACT, ENDO (06/30/16) INSRT OF DRUG-ELUTING CORON ARTERY STENTS(S) (04/15/06) INTRODUCTION OF OTHER THERAPEUTIC SUBSTANCE INTO UP GI, ENDO (06/30/16) LEFT HEART CARDIAC CATH (04/15/06) LT HEART ANGIOCARDIOGRAM (04/15/06) MEASURE OF CARDIAC SAMPL & PRESSURE, L HEART, PERC APPROACH (01/15/16) PERC TRANSLUMINAL CORON ANGIOPLASTY PTCA OR CORON ATHERECT (04/15/06) PLAIN RADIOGRAPHY OF LEFT HEART USING OTHER CONTRAST (01/15/16) PLAIN RADIOGRAPHY OF MULT COR ART USING OTH CONTRAST (01/15/16) PROCEDURE ON SINGLE VESSEL (04/15/06) TRANSFUSE NONAUT RED BLOOD CELLS IN PERIPH VEIN, PERC (06/30/16) Family History: States: No Known Family Hx - Social History Hx Tobacco Use: No Hx Alcohol Use: No Hx Substance Use: No - Immunization History Hx Tetanus Toxoid Vaccination: No Hx Influenza Vaccination: Yes Hx Pneumococcal Vaccination: Yes Review Of Systems Constitutional: Negative for: Fever, Chills Gastrointestinal: Positive for: Abdominal Pain. Negative for: Nausea, Vomiting Musculoskeletal: Positive for: Other (Myalgia) Skin: Negative for: Rash Neurological: Positive for: Dizziness. Negative for: Weakness, Numbness Physical Exam - Physical Exam Appears: Non-toxic, No Acute Distress Skin: Warm, Dry, No Rash Head: Atraumatic, Normacephalic Eye(s): bilateral: Normal Inspection Oral Mucosa: Moist Neck: Normal ROM, Supple Cardiovascular: Rhythm Regular Respiratory: Normal Breath Sounds, No Rales, No Rhonchi, No Wheezing Gastrointestinal/Abdominal: Soft, No Tenderness, No Guarding, No Rebound Neurological/Psych: Oriented x3, Normal Speech, Normal Cognition, Normal Motor, Normal Sensation Gait: Steady ED Course And Treatment - Laboratory Results Result Diagrams: 04/16/17 08:36 04/16/17 08:36 ECG: Interpreted By Me, Viewed By Me ECG Rhythm: Sinus Rhythm O2 Sat by Pulse Oximetry: 99 (RA) Pulse Ox Interpretation: Normal Progress - Re-Evaluation Re-evaluation Note: 04/16/17 10:06 NO RECUR SX SINCE INITIAL EVAL. VSS D/W PMD AWARE OF ER FINDINGS WILL ADMIT. CONSULT DR Jigar GRIFFIN 04/16/17 10:12 PS CARDIO = DR GUZMAN. DR BOLDEN OFFICE ADVISED WILL CONSULT PT'S HAND TAPPER - Data Reviewed Data Reviewed: Lab, Diagnostic imaging, EKG, Old records - Continuity of Care Discussed patient case with:: Patient, Family-HIPPA compliant, PMD Disposition Counseled Patient/Family Regarding: Studies Performed, Diagnosis - Disposition Disposition: HOSPITALIZED Disposition Time: 10:06 Condition: STABLE Forms: [facility] (Irish) - POA Present On Arrival: None - Clinical Impression Clinical Impression: Abdominal pain, Near syncope, Influenza-like syndrome - Scribe Statement The provider has reviewed the documentation as recorded by the Scribemi López All medical record entries made by the Walteribemi were at my direction and personally dictated by me. I have reviewed the chart and agree that the record accurately reflects my personal performance of the history, physical exam, medical decision making, and the department course for this patient. I have also personally directed, reviewed, and agree with the discharge instructions and disposition. Decision To Admit - Pt Status Changed To: Hospital Disposition Of: Observation - . Bed Request Type: Telemetry Admitting Physician: Joaquin Bolden Patient Diagnosis: Abdominal pain, Near syncope, Influenza-like syndrome
[2017-04-16] MEDS ORDERED: Aspirin 325 mg EC Tablets PO STA (08:30)
[2017-04-16] MEDS ORDERED: Sodium Chloride 0.9% 1,000 ML IV ONE (08:30)
[2017-04-16 08:39] LABS: BASO % 0.6 % (0.0-2.0); EOS # 0.7 K/uL (0.0-0.7); EOS % 11.4 % (0.0-4.0); HEMOGLOBIN 10.5 g/dL (12.0-18.0); LYMPH # 0.7 K/uL (1.0-4.3); LYMPH % 12.4 % (20.0-40.0); MEAN CELL VOLUME 67.6 fL (80.0-94.0); MEAN CORPUSCULAR HEMOGLOBIN 21.8 pg (27.0-31.0); MEAN CORPUSCULAR HGB CONC 32.3 g/dL (33.0-37.0); MEAN PLATELET VOLUME 7.6 fL (7.2-11.7); MONO # 0.9 K/uL (0.0-0.8); MONO % 16.2 % (0.0-10.0); NEUT # 3.4 K/uL (1.8-7.0); NEUT % 59.4 % (50.0-75.0); RBC 4.83 Mil/uL (4.40-5.90); RED CELL DISTRIBUTION WIDTH 21.1 % (11.5-14.5)
[2017-04-16 08:41] LABS: WHITE BLOOD COUNT 5.7 K/uL (4.8-10.8)
[2017-04-16 08:52] LABS: ALB/GLOB RATIO 1.2 (1.0-2.1); ALBUMIN 3.7 g/dL (3.5-5.0); ALT/SGPT 25 U/L (21-72); AST/SGOT 46 U/L (17-59); BLOOD UREA NITROGEN 19 mg/dL (9-20); CALCIUM 8.1 mg/dl (8.6-10.4); GFR AFRICAN-AMERICAN 46; GFR NON-AFRICAN AMERICAN 38
[2017-04-16 09:33] LABS: PROTHROMBIN TIME 11.3 SECONDS (9.7-12.2)
--- NOTE | 2017-04-16 09:34 | RAD ---
Chest x-ray single frontal view History: Chest pain. Comparison: 02/27/2016 Findings Left basilar airspace opacity with small left pleural effusion. Mild cardiomegaly. Calcification at the aortic knob. Degenerative changes spine and shoulders. Impression: Left basilar airspace opacity with small left pleural effusion. Mild cardiomegaly. Calcification at the aortic knob.
[2017-04-16 14:31] VITALS: O2SAT 98
[2017-04-16] MEDS ORDERED: Albuterol 0.083% Inhal Sol (2.5 mg/3 mL) UD IH PRN (18:10)
[2017-04-16] MEDS: Fluticasone-Salmeterol 500-50mcg Diskus INH SCH (19:47)
[2017-04-17 00:31] VITALS: RESP 20
[2017-04-17] MEDS: Fluticasone-Salmeterol 500-50mcg Diskus INH SCH (07:37)
[2017-04-17 07:59] VITALS: BP 137/82; PULSE 112; TEMP 98.2
--- NOTE | 2017-04-17 08:32 | CP.PCM.HP ---
History of Present Illness - History of Present Illness History of Present Illness: Pt w/ COPD, Recurrnt GI bleed 2 PUD, CAD s/p multiple stent. Patient sen c/o COPD Exac and was given Tamiflu. Patient cough had increase and now greenish/ yellow. Pt awaken c/o weak & feels he is going to pass out. he went to ER and was advise observation.. Present on Admission - Present on Admission Any Indicators Present on Admission: Yes History of DVT/PE: No History of Uncontrolled Diabetes: No Past Patient History - Infectious Disease Hx of Infectious Diseases: None - Past Medical History & Family History Past Medical History?: Yes - Past Social History Smoking Status: Former Smoker - CARDIAC Hx Congestive Heart Failure: Yes Hx Hypercholesterolemia: Yes Hx Hypertension: Yes Hx Pacemaker: Yes - PULMONARY Hx Asthma: Yes Hx Chronic Obstructive Pulmonary Disease (COPD): Yes Hx Sleep Apnea: Yes - NEUROLOGICAL Hx Paralysis: No - HEENT Hx HEENT Problems: Yes (wears glasses) - RENAL Hx Chronic Kidney Disease: No - ENDOCRINE/METABOLIC Hx Endocrine Disorders: Yes Hx Diabetes Mellitus Type 2: Yes - HEMATOLOGICAL/ONCOLOGICAL Hx Anemia: Yes - INTEGUMENTARY Hx Dermatological Problems: No - MUSCULOSKELETAL/RHEUMATOLOGICAL Hx Arthritis: Yes Hx Osteoporosis: Yes Hx Rheumatoid Arthritis: Yes - GENITOURINARY/GYNECOLOGICAL Hx Genitourinary Disorders: Yes Hx Prostate Problems: Yes (ENLARGED -BPH) - PSYCHIATRIC Hx Substance Use: No - SURGICAL HISTORY Hx Coronary Stent: Yes (6) - ANESTHESIA Hx Anesthesia: Yes Hx Anesthesia Reactions: No Hx Malignant Hyperthermia: No Meds Allergies/Adverse Reactions: Allergies Allergy/AdvReac Type Severity Reaction Status Date / Time No Known Allergies Allergy Verified 04/16/17 07:40 Results - Vital Signs Recent Vital Signs: Last Vital Signs Temp 98.2 F 04/17/17 07:58 Pulse 112 H 04/17/17 07:58 Resp 20 04/17/17 07:58 BP 137/82 04/17/17 07:58 Pulse Ox 98 04/17/17 07:58 - Labs Result Diagrams: 04/16/17 08:36 04/16/17 08:36 Labs: Laboratory Results - last 24 hr 04/16/17 04/16/17 04/16/17 08:36 08:36 08:39 WBC 5.7 D RBC 4.83 Hgb 10.5 L Hct 32.7 L MCV 67.6 L MCH 21.8 L MCHC 32.3 L RDW 21.1 H Plt Count 256 MPV 7.6 Neut % (Auto) 59.4 Lymph % (Auto) 12.4 L Giles % (Auto) 16.2 H Eos % (Auto) 11.4 H Baso % (Auto) 0.6 Neut # (Auto) 3.4 Lymph # (Auto) 0.7 L Giles # (Auto) 0.9 H Eos # (Auto) 0.7 Baso # (Auto) 0.0 Differential Comment PT INR APTT Sodium 133 Potassium 4.1 Chloride 99 Carbon Dioxide 26 Anion Gap 12 BUN 19 Creatinine 1.8 H Est GFR ( Amer) 46 Est GFR (Non-Af Amer) 38 POC Glucose (mg/dL) Random Glucose 93 Calcium 8.1 L Total Bilirubin 0.4 AST 46 ALT 25 Alkaline Phosphatase 116 Troponin I < 0.0120 Total Protein 6.9 Albumin 3.7 Globulin 3.2 Albumin/Globulin Ratio 1.2 Influenza Typ A,B (EIA) Negative for flu a/b 04/16/17 04/16/17 09:05 16:23 WBC RBC Hgb Hct MCV MCH MCHC RDW Plt Count MPV Neut % (Auto) Lymph % (Auto) Giles % (Auto) Eos % (Auto) Baso % (Auto) Neut # (Auto) Lymph # (Auto) Giles # (Auto) Eos # (Auto) Baso # (Auto) Differential Comment PT 11.3 INR 1.0 APTT 33 Sodium Potassium Chloride Carbon Dioxide Anion Gap BUN Creatinine Est GFR ( Amer) Est GFR (Non-Af Amer) POC Glucose (mg/dL) 110 Random Glucose Calcium Total Bilirubin AST ALT Alkaline Phosphatase Troponin I Total Protein Albumin Globulin Albumin/Globulin Ratio Influenza Typ A,B (EIA)
[2017-04-17] MEDS ORDERED: Home Med 1 UNIT (Febuxostat [Uloric] 80 MG) PO SCH (10:00)
[2017-04-17] MEDS ORDERED: Ranolazine 500 mg Extended Release Tablets PO SCH (10:00)
[2017-04-17] MEDS ORDERED: Home Med 1 UNIT (Linagliptin [Tradjenta] 5 MG) PO SCH (10:00)
[2017-04-17] MEDS ORDERED: Enoxaparin 40 mg Syringe SC SCH (10:00)
--- NOTE | 2017-04-17 10:41 | PCM.HF ---
Heart Failure Core Measure - Heart Failure Ejection Fraction: 40 % or Greater DANDY Inhibitor Prescribed: No Contraindication/Reason for not providing: on arb Beta-Stefany Prescribed: Metoprolol Succinate Angiotensin II Receptor Stefany Prescribed: Yes AnticoagulationTherapy for Atrial Fibrillation/Atrialflutter: No Contraindication/Reason for not providing: no hx of afib Aldosterone Antagonist Prescribed: No Contraindication/Reason for not providing: ef>45 Hydralazine Nitrate Prescribed: No Contraindication/Reason for not providing: ef>45 Implantable Cardioverter Defibrillator Therapy: No Contraindication/Reason for not providing: ef.45 Cardiac Resynchronization Therapy Prescribed: No Contraindication/Reason for not providing: ef>45 - Follow up Will be discharged to: Home Follow Up Date (must be within 7 days from discharge): 04/21/17 Follow Up Time: 09:00
--- NOTE | 2017-04-17 19:21 | CARD ---
APPROVED REPORT EKG Measurement Heart [id number] <Conclusion> Normal sinus rhythm Normal ECG
== END 2017-04-17 09:59 | disposition short-term general hospital (02) ==
LOC: C.ER 07:30 → C.9E 10:07 → C.6T 12:55
PROVIDERS: ADMIT Internal Medicine; ATTEND Internal Medicine
DX: J11.1 Influenza due to unidentified influenza virus with other respiratory manifestations (principal); E11.9 Type 2 diabetes mellitus without complications; E78.00 Pure hypercholesterolemia, unspecified; G47.30 Sleep apnea, unspecified; I11.0 Hypertensive heart disease with heart failure; I25.10 Atherosclerotic heart disease of native coronary artery without angina pectoris; I50.9 Heart failure, unspecified; J44.1 Chronic obstructive pulmonary disease with (acute) exacerbation; M06.9 Rheumatoid arthritis, unspecified; M81.0 Age-related osteoporosis without current pathological fracture; N40.0 Benign prostatic hyperplasia without lower urinary tract symptoms; Z87.891 Personal history of nicotine dependence; Z95.0 Presence of cardiac pacemaker; Z95.5 Presence of coronary angioplasty implant and graft; Z87.11 Personal history of peptic ulcer disease
CPT/HCPCS: 71045; 80053; 82948; 84484; 85025; 85610; 85730; 87804; 93005; 94640; 96360; 99285; G0378; J7040